=== PATIENT | female | born 1995 | race Caucasian/White ===

== ENCOUNTER 2022-05-30 07:22 | Inpatient (IN) | payer MEDICAID ==
[~2022-05-30] VITALS: Ht 172.7 cm; Wt 122.5 kg
[2022-05-30] MEDS ORDERED: TERBUTALINE SULFATE 1 MG/ML VIAL SUBCUT ONE (09:15)
[2022-05-30] MEDS ORDERED: LR 1,000 ML IV SCH (09:15)
[2022-05-30] MEDS ORDERED: OXYTOCIN/0.9 % SODIUM CHLORIDE 1,000 ML IV SCH (09:15)
[2022-05-30] MEDS ORDERED: AMPICILLIN SODIUM 2 GM in NS 100 ML IV ONE (09:15)
[2022-05-30] MEDS ORDERED: AMPICILLIN SODIUM 2 GM VIAL ONE (09:31)
[2022-05-30 09:41] LABS: BASOPHILS % (AUTO) 0.2 % (0.0-2.0); EOSINOPHILS % (AUTO) 0.6 % (0.0-4.0); HEMATOCRIT 34.8 % (36-48); HEMOGLOBIN 11.6 g/dL (12.0-16.0); LYMPHOCYTES # (AUTO) 1.3 K/uL (1.0-5.5); MEAN CORPUSCULAR HEMOGLOBIN 30 pg (27-31); MEAN CORPUSCULAR HGB CONC 34 % (32-36); MEAN CORPUSCULAR VOLUME 89 fL (79.0-98.0); MONOCYTES # (AUTO) 0.4 K/uL (0.0-1.0); NEUTROPHILS # (AUTO) 5.4 K/uL (1.8-7.7); NEUTROPHILS % (AUTO) 75.2 % (40.0-70.0); PLATELET COUNT (AUTO) 140 K/uL (130-430); RED BLOOD CELL COUNT(AUTO) 3.92 MIL/uL (4.2-6.2); RED CELL DISTRIBUTION WIDTH 14.2 % (9.0-15.0); WHITE BLOOD COUNT (AUTO) 7.2 K/uL (4.8-10.8)
[2022-05-30] MEDS: MISOPROSTOL 25 MCG (0.025 MG) *QUARTER TABLET VG SCH ×2 (11:44→16:15)
[2022-05-30 12:14] VITALS: BP_SYST 107
[2022-05-30] MEDS: NALBUPHINE HCL 10 MG/ML AMP IM PRN ×2 (19:49→21:58)
[2022-05-30] MEDS: AMPICILLIN SODIUM 1 GM in NS 50 ML IV SCH (21:49)
[2022-05-30] MEDS ORDERED: fentaNYL CITRATE/PF 100 MCG/2 ML AMP ONE (22:58)
[2022-05-30] MEDS ORDERED: ROPIVACAINE HCL/PF 0.2% 200 ML ONE ×2 (23:00)
[2022-05-31] MEDS ORDERED: FENT2mCg/mL-ROPIVA0.2%/NS EPID 200 ML EP SCH (00:15)
[2022-05-31] MEDS ORDERED: LR 500 ML IV ONE (00:15)
[2022-05-31] MEDS: AMPICILLIN SODIUM 1 GM in NS 50 ML IV SCH ×3 (01:55→11:02)
[2022-05-31] MEDS ORDERED: ROPIVACAINE HCL/PF 0.2% 200 ML ONE (10:24)
[2022-05-31] MEDS ORDERED: fentaNYL CITRATE/PF 100 MCG/2 ML AMP ONE (10:29)
[2022-05-31] MEDS ORDERED: OXYTOCIN/0.9 % SODIUM CHLORIDE 1,000 ML IV SCH (15:00)
[2022-05-31] MEDS ORDERED: LANOLIN 7 GM OINT. TP PRN (15:00)
[2022-05-31] MEDS ORDERED: WITCH HAZEL LEAF 1 MED.PAD MED.PAD TP PRN (15:00)
[2022-05-31] MEDS ORDERED: OXYTOCIN/0.9 % SODIUM CHLORIDE 1,000 ML IV ONE (15:00)
[2022-05-31] MEDS ORDERED: RHO(D) IMMUNE GLOBULIN/MALTOSE 1500 UNITS/1.3 ML (WINHRO) IM PRN (15:00)
[2022-05-31] MEDS ORDERED: METHYLERGONOVINE MALEATE 0.2 MG TABLET PO PRN (15:00)
[2022-05-31] MEDS ORDERED: DERMOPLAST SPRAY TP PRN (15:00)
[2022-05-31] MEDS ORDERED: DIPH-TET-PERTUS Vaccine 0.5 ML VIAL (ADACEL) I.M. PRN (15:00)
[2022-05-31] MEDS ORDERED: MEASLES,MUMPS&RUBELLA VACC/PF 12500 UNIT/0.5 ML VIAL SUBQ PRN (15:00)
[2022-05-31] MEDS: IBUPROFEN 600 MG TABLET PO SCH (18:16)
[2022-05-31] MEDS ORDERED: LIDOCAINE PF 1% 30ML(POUR BTL) INJ ONE (18:29)
[2022-05-31] MEDS ORDERED: LIGHT MINERAL OIL 10 ML VIAL MC ONE (18:29)
[2022-05-31] MEDS: SENNOSIDES/DOCUSATE SODIUM 1 TAB TABLET(SENOKOT-S) PO SCH (21:07)
[2022-05-31] MEDS ORDERED: OXYCODONE/ACETAMINOPHEN 5-325 TABLET PO PRN (21:15)
[2022-05-31] MEDS ORDERED: HYDROcodone/ACETAMIN 5-325 MG TAB (NORCO/ VICODIN) PO PRN (21:15)
[2022-05-31] MEDS: OXYCODONE/ACETAMINOPHEN 5-325 TABLET PO PRN (22:07)
[2022-06-01] MEDS: IBUPROFEN 600 MG TABLET PO SCH ×4 (00:01→18:06)
[2022-06-01 07:11] LABS: BASOPHILS % (AUTO) 0.2 % (0.0-2.0); EOSINOPHILS # (AUTO) 0.2 K/uL (0.0-0.4); EOSINOPHILS % (AUTO) 1.6 % (0.0-4.0); HEMATOCRIT 27.8 % (36-48); HEMOGLOBIN 9.2 g/dL (12.0-16.0); MEAN CORPUSCULAR HEMOGLOBIN 30 pg (27-31); MEAN CORPUSCULAR HGB CONC 33 % (32-36); MEAN CORPUSCULAR VOLUME 90 fL (79.0-98.0); MONOCYTES # (AUTO) 0.8 K/uL (0.0-1.0); MONOCYTES % (AUTO) 6.6 % (1.7-9.3); NEUTROPHILS # (AUTO) 8.8 K/uL (1.8-7.7); NEUTROPHILS % (AUTO) 74.6 % (40.0-70.0); PLATELET COUNT (AUTO) 132 K/uL (130-430); WHITE BLOOD COUNT (AUTO) 11.8 K/uL (4.8-10.8)
[2022-06-01] MEDS: DOCUSATE SODIUM 100 MG CAPSULE PO SCH (09:04)
[2022-06-01 19:00] VITALS: BP_SYST 93
[2022-06-01] MEDS: SENNOSIDES/DOCUSATE SODIUM 1 TAB TABLET(SENOKOT-S) PO SCH (20:23)
[2022-06-02] MEDS: IBUPROFEN 600 MG TABLET PO SCH ×2 (06:07)
[2022-06-02] MEDS: OXYCODONE/ACETAMINOPHEN 5-325 TABLET PO PRN (10:25)
[2022-06-02] MEDS: DOCUSATE SODIUM 100 MG CAPSULE PO SCH (10:26)
[2022-06-03 20:06] LABS: FTA-Ab (T PALLIDUM) Non Reactive (Non Reactive)
== END 2022-06-02 11:40 | disposition home or self-care (01) | DRG 560 ==
LOC: SPU 08:41
PROVIDERS: ADMIT Obstetrics & Gynecology; ATTEND Obstetrics & Gynecology
PROC: 10E0XZZ Delivery of Products of Conception, External Approach (ICD-10-PCS; principal; 2022-05-31)
PROC: 3E0R3BZ Introduction of Anesthetic Agent into Spinal Canal, Percutaneous Approach (ICD-10-PCS; 2022-05-31)
PROC: 00HU33Z Insertion of Infusion Device into Spinal Canal, Percutaneous Approach (ICD-10-PCS; 2022-05-31)
DX: O99.824 Streptococcus B carrier state complicating childbirth (principal); Z37.0 Single live birth; D62 Acute posthemorrhagic anemia; Z20.822 Contact with and (suspected) exposure to COVID-19; Z3A.40 40 weeks gestation of pregnancy
CPT/HCPCS: 36415; 85025; 86592; 86780; 86886; 86900; 86901; J0290; J2001; J2300; J2590; J3010